=== PATIENT | male | born 1975 | race Two or more races ===

== ENCOUNTER 2021-12-11 10:27 | Emergency (ER) | payer OTHER ==
[~2021-12-11] VITALS: Ht 175.3 cm; Wt 99.8 kg
[2021-12-11 10:27] VITALS: BP 130/79
== END 2021-12-11 13:13 | disposition left against medical advice (07) ==
LOC: ER 10:27
DX: R10.9 Unspecified abdominal pain (principal); Z53.21 Procedure and treatment not carried out due to patient leaving prior to being seen by health care provider